=== PATIENT | male | born 1980 | race Caucasian/White ===

== ENCOUNTER 2017-06-21 13:17 | Emergency (ER) | payer OTHER, BC ==
[~2017-06-21] VITALS: Ht 175.3 cm; Wt 81.0 kg
[~2017-06-21 13:17] MED LIST: CYCL-36 PO; DILA100C PO; IBUP600T26 PO; LEXA5TAB PO; LORTA5 PO
[2017-06-21 13:19] VITALS: BP 136/89; PULSE 67; RESP 16; TEMP 97.9; O2SAT 99
[2017-06-21] MEDS ORDERED: OXYC-392 PO (13:34)
--- NOTE | 2017-06-21 13:43 | PD ---
HPI . Left foot pain and swelling Chief Complaint: Musculoskeletal Complaint Time Seen by Provider: 13:31 Travel History International Travel<30 days: No Contact w/Intl Traveler<30days: No Traveled to known affect area: No History of Present Illness HPI 37-year-old male patient presents the emergency department for evaluation of left foot pain and swelling that started yesterday. Patient works at a [employer] and jumped off a boat onto the dock, when he landed on the dock his left foot landed in an awkward position. Patient stated it hurt and then but is progressively getting worse. Patient is having a hard time bearing weight on his foot at this time. The foot is moderately swollen with slight limitation of dorsi and plantar flexion. Patient is neurovascularly intact and has good pedal pulses and sensation. Patient denies any major medical history. Patient does not take any daily medication. Patient does not have any allergies. Patient denies any chest pain, shortness breath, fever, chills, malaise, dysuria or any other physiological complaint at this time. PFSH Past Medical History Depression: Yes Diminished Hearing: No Immunizations Current: Yes Seizures: Yes Social History Alcohol Use: Yes ([employer]) Tobacco Use: No Substance Use: No Allergies-Medications (Allergen,Severity, Reaction): Coded Allergies: No Known Allergies (Verified , 06/21/17) Reported Meds & Prescriptions Reported Meds & Active Scripts Active Reported Oxycodone (Oxycodone HCl) 5 Mg Tab 5 Mg PO DAILY Review of Systems Except as stated in HPI: all other systems reviewed are Neg Musculoskeletal: Positive: Edema (left foot), Pain (left foot) Physical Exam Narrative GENERAL: Well-nourished, well-developed 37-year-old male patient in no acute distress. SKIN: Focused skin assessment warm/dry. HEAD: Normocephalic. Atraumatic EYES: No scleral icterus. No injection or drainage. NECK: Supple, trachea midline. No JVD or lymphadenopathy. CARDIOVASCULAR: Regular rate and rhythm without murmurs, gallops, or rubs. RESPIRATORY: Breath sounds equal bilaterally. No accessory muscle use. GASTROINTESTINAL: Abdomen soft, non-tender, nondistended. MUSCULOSKELETAL: Moderate swelling of left foot with slightly decreased range of motion with plantar and dorsiflexion. No cyanosis. Neurovascularly the left foot is intact with good sensation and pedal pulses. BACK: Nontender without obvious deformity. No CVA tenderness. Data Data Last Documented VS Vital Signs Date Time Temp Pulse Resp B/P (MAP) Pulse Ox O2 Delivery O2 Flow Rate FiO2 06/21/17 13:19 97.9 67 16 136/89 (105) 99 Orders Orders Foot, Complete ([id number]) (06/21/17 13:33) Ice/Cold Pack (06/21/17 13:33) MDM Medical Decision Making Medical Screen Exam Complete: Yes Emergency Medical Condition: Yes Differential Diagnosis Differential diagnoses include but not limited to left foot fracture, left foot contusion, ankle sprain Narrative Course 37-year-old male patient presents emergency department for evaluation after jumping onto a dock yesterday and landing in an awkward position on his left foot. The left foot is swollen and painful. Patient states pain is increasing with bearing weight. Patient was able to walk yesterday but feels that it is too painful to walk today. Ice pack ordered for swelling and pain. Left foot x -ray ordered and pending. X-ray left foot was negative for any fracture. Based on patient's symptoms, clinical presentation, radiological results, vital sign review and physical exam it is not necessary to admit the patient to the hospital or keep the patient in the emergency department for further evaluation. Patient will be discharged home with prescription for Motrin, left foot Angel wrapped, crutches, ice pack and instructions to follow rice therapy. Referrals: Primary Care Physician Patient Instructions: Foot Sprain (ED), General Instructions Departure Forms: Tests/Procedures, Work Release Enter return to work date: Jun 24, 2017 Additional Instructions: Please return to emergency department if your symptoms return or worsen. Take Motrin as directed as needed for pain. Rest foot, ice foot, use Angel wrap for compression, and elevate foot when resting. Follow up with your primary care provider. Med/Other Pt SpecificInfo: Prescription(s) given Scripts Ibuprofen (Motrin Ib) 200 Mg Tablet 400 MG PO Q6HR Y for pain, #14 Prov: Mehnaz Schroeder 06/21/17 Disposition: 01 DISCHARGE HOME Condition: Stable Mehnaz Schroeder Jun 21, 2017 13:43
--- NOTE | 2017-06-21 14:03 | RADRPT ---
EXAM DATE/TIME: 06/21/2017 13:47 [facility] COMPARISON: No previous studies available for comparison. INDICATIONS : Slip and fall yesterday, left lateral foot pain. MEDICAL HISTORY : None. SURGICAL HISTORY : None. ENCOUNTER: Initial ACUITY: 2 days PAIN SCORE: 8/10 LOCATION: Left lateral foot FINDINGS: Three view examination of the left foot demonstrates no soft tissue swelling, dislocation, or fractur e. The tarsal bones appear intact. The interphalangeal and metatarsophalangeal joints are intact. The calcaneus is intact. Bony mineralization is normal. CONCLUSION: Unremarkable examination of the left foot. Fortino Boston MD on June 21, 2017 at 14:01 Board Certified Radiologist. This report was verified electronically.
[2017-06-21] MEDS ORDERED: IBUP-1129 PO (14:22)
== END 2017-06-21 14:30 | disposition home or self-care (01) ==
LOC: PHEFT 13:17
DX: S93.602A Unspecified sprain of left foot, initial encounter (principal); W01.0XXA Fall on same level from slipping, tripping and stumbling without subsequent striking against object, initial encounter
CPT/HCPCS: 73630; 99283; E0113